=== PATIENT | male | born 1970 | race Hispanic/Latino ===

== ENCOUNTER 2020-10-29 05:30 | Inpatient (IN) | payer OTHER ==
[~2020-10-29] VITALS: Ht 180.3 cm; Wt 127.0 kg
[2020-10-29 05:57] LABS: BASOPHILS % (AUTO) 1.8 % (0.0-5.0); EOSINOPHILS % (AUTO) 4.9 % (0.0-8.0); HEMATOCRIT 34.6 % (42-54); LYMPHOCYTES % (AUTO) 24.6 % (21.0-51.0); MEAN CORPUSCULAR HEMOGLOBIN 33.9 pg (27.0-33.0); MEAN CORPUSCULAR HGB CONC 32.7 g/dL (32.0-36.0); MEAN CORPUSCULAR VOLUME 103.9 fL (79-99); MONOCYTES % (AUTO) 10.2 % (3.0-13.0); NEUTROPHILS % (AUTO) 58.1 % (40.0-77.0); PLATELET COUNT (AUTO) 144 K/uL (130-400); RED BLOOD CELL COUNT(AUTO) 3.33 MIL/uL (4.50-6.20); RED CELL DISTRIBUTION WIDTH 15.5 % (11.0-15.5); WHITE BLOOD COUNT (AUTO) 5.1 K/uL (4.8-10.8)
[2020-10-29 06:05] LABS: CREATININE 0.8 mg/dL (0.5-1.5); POTASSIUM 4.3 mmol/L (3.5-5.1)
[2020-10-29 06:09] LABS: ALBUMIN 2.3 g/dL (3.5-5.0); BILIRUBIN,TOTAL 1.8 mg/dL (0.2-1.0); TOTAL PROTEIN, SERUM 9.5 g/dL (6.0-8.3)
[2020-10-29] MEDS ORDERED: FUROSEMIDE 10 MG/ML 4ML VIAL ONE (06:16)
[2020-10-29 06:17] LABS: INR 1.5 (0.85-1.15); PROTHROMBIN TIME 15.8 SEC (9.6-11.6)
[2020-10-29 06:18] LABS: PARTIAL THROMBOPLASTIN TIME 31.3 SEC (26.3-35.5)
[2020-10-29 06:59] LABS: APPEARANCE,URINE Cloudy (CLEAR); BILIRUBIN,URINE Small (NEGATIVE); COLOR,URINE Dark Yellow (YELLOW); GLUCOSE, URINE (UA) Negative (NEGATIVE); KETONES,URINE Negative (NEGATIVE); LEUKOCYTE ESTERASE ,URINE Small (NEGATIVE); NITRATE,URINE Positive (NEGATIVE); OCCULT BLOOD,URINE Moderate (NEGATIVE); PROTEIN,URINE POS 2+ mg/dL (NEGATIVE)
[2020-10-29 07:02] LABS: AMPHET/METH SCREEN,URINE NEGATIVE (NEGATIVE); BARBITURATE SCREEN, URINE NEGATIVE (NEGATIVE); BENZODIAZEPINES SCREEN,URINE POSITIVE (NEGATIVE); CANNABINOID SCREEN,URINE NEGATIVE (NEGATIVE); COCAINE SCREEN,URINE POSITIVE (NEGATIVE); OPIATE SCREEN,URINE NEGATIVE (NEGATIVE); PHENCYCLIDINE SCREEN,URINE NEGATIVE (NEGATIVE)
[2020-10-29] MEDS ORDERED: PHARMACY COMMUNICATION MISC PRN (07:15)
[2020-10-29] MEDS ORDERED: LORAZEPAM 2 MG/ML 1 ML VIAL IVP PRN (07:15)
[2020-10-29 07:21] LABS: BACTERIA,URINE Few /HPF (None Seen); RBC,URINE 0-1 /HPF (0-1); SQUAMOUS EPITHELIAL CELL,UR Few /HPF (0-2)
[2020-10-29 07:41] LABS: HEMOGLOBIN A1C 5.5 % (4.0-6.0)
[2020-10-29] MEDS ORDERED: ALBUMIN (HUMAN) 25% 200 ML IV ONE (08:12)
[2020-10-29] MEDS ORDERED: FUROSEMIDE 10 MG/ML 4ML VIAL IVP SCH (09:00)
[2020-10-29 10:55] VITALS: BP 113/76
[2020-10-29] MEDS: THIAMINE HCL 100 MG/ML 2ML VIAL IM SCH ×2 (10:55→12:10)
[2020-10-29] MEDS ORDERED: PHYTONADIONE 10 MG in SODIUM CHLORIDE 0.9% 50 ML IV SCH (11:29)
[2020-10-29] MEDS: MULTIVITAMIN TABLET PO SCH ×2 (11:58→12:09)
[2020-10-29] MEDS: FOLIC ACID 1 MG TABLET PO SCH ×2 (11:58→12:09)
[2020-10-29] MEDS: FAMOTIDINE 20MG TAB 20 MG TAB PO SCH ×3 (11:58→20:48)
[2020-10-29] MEDS: LACTULOSE 20 GM/30 ML UDCUP PO PRN (12:11)
[2020-10-29] MEDS: CHLORDIAZEPOXIDE HCL 25 MG CAP PO PRN ×2 (12:15→19:22)
[2020-10-29 13:59] LABS: APPEARANCE BODY FLUID CLEAR (CLEAR); COLOR,BODY FLUID YELLOW (LT YELLOW); SPECIMENTYPE,BODY FLUID ASCITES; TOTAL VOLUME,BODY FLUID 7000 mL
[2020-10-29 14:00] LABS: BODY FLUID RBC 346 /cu. mm.; BODY FLUID WBC 134 /cu. mm.
[2020-10-29 14:01] LABS: BF BASOPHIL 1 %; BF LYMPHOCYTE 41 %; BF MESOTHELIAL 39 %; BF MONOCYTE 5 %
[2020-10-29] MEDS: LORAZEPAM 2 MG/ML 1 ML VIAL IVP PRN ×2 (15:09→21:02)
[2020-10-29 16:19] VITALS: BP 117/78
[2020-10-29 19:56] VITALS: BP 123/92
[2020-10-30 00:29] VITALS: BP 124/79
[2020-10-30 04:00] VITALS: BP 122/93
[2020-10-30] MEDS: CHLORDIAZEPOXIDE HCL 25 MG CAP PO PRN ×4 (04:08→21:28)
[2020-10-30 05:08] LABS: BASOPHILS % (AUTO) 1.8 % (0.0-5.0); EOSINOPHILS % (AUTO) 6.2 % (0.0-8.0); HEMATOCRIT 34.2 % (42-54); MEAN CORPUSCULAR HEMOGLOBIN 32.7 pg (27.0-33.0); MEAN CORPUSCULAR HGB CONC 31.9 g/dL (32.0-36.0); MEAN CORPUSCULAR VOLUME 102.7 fL (79-99); MONOCYTES % (AUTO) 10.6 % (3.0-13.0); NEUTROPHILS % (AUTO) 59.1 % (40.0-77.0); PLATELET COUNT (AUTO) 123 K/uL (130-400); RED BLOOD CELL COUNT(AUTO) 3.33 MIL/uL (4.50-6.20); RED CELL DISTRIBUTION WIDTH 15.3 % (11.0-15.5); WHITE BLOOD COUNT (AUTO) 3.4 K/uL (4.8-10.8)
[2020-10-30 05:57] LABS: ALBUMIN 2.5 g/dL (3.5-5.0); BILIRUBIN,TOTAL 2.7 mg/dL (0.2-1.0); CREATININE 0.9 mg/dL (0.5-1.5); POTASSIUM 3.2 mmol/L (3.5-5.1); TOTAL PROTEIN, SERUM 9.1 g/dL (6.0-8.3)
[2020-10-30 08:04] VITALS: BP 116/78
[2020-10-30] MEDS ORDERED: POTASSIUM CHLORIDE 10% ELIXIR 20 MEQ/15 ML UDCUP PO SCH (08:45)
[2020-10-30] MEDS ORDERED: FUROSEMIDE 10 MG/ML 4ML VIAL IVP SCH (09:00)
[2020-10-30] MEDS: THIAMINE HCL 100 MG/ML 2ML VIAL IM SCH (09:24)
[2020-10-30] MEDS: MULTIVITAMIN TABLET PO SCH (09:25)
[2020-10-30] MEDS: FOLIC ACID 1 MG TABLET PO SCH (09:25)
[2020-10-30] MEDS: FAMOTIDINE 20MG TAB 20 MG TAB PO SCH ×2 (09:25→21:29)
[2020-10-30] MEDS: SPIRONOLACTONE 25 MG TAB PO SCH (09:27)
[2020-10-30] MEDS: LORAZEPAM 2 MG/ML 1 ML VIAL IVP PRN ×2 (10:09→15:00)
[2020-10-30] MEDS ORDERED: CEFTRIAXONE SODIUM 1 GM IVP SCH (12:15)
[2020-10-30 12:24] VITALS: BP 128/99
[2020-10-30] MEDS ORDERED: MAGNESIUM 2GM PREMIX 50ML 50 ML IV ONE (12:45)
[2020-10-30] MEDS: THIAMINE HCL 100 MG/ML 2ML VIAL IVP SCH (14:44)
[2020-10-30] MEDS: LACTULOSE 20 GM/30 ML UDCUP PO PRN (14:45)
[2020-10-30 17:59] VITALS: BP 152/98
[2020-10-30] MEDS ORDERED: LEVOFLOXACIN 500 MG/D5W 100 ML 100 ML IV SCH (19:00)
[2020-10-30 19:19] LABS: PROTEIN,URINE RANDOM 121.2 mg/dL (0-11.9)
[2020-10-30 20:42] VITALS: BP 147/65
[2020-10-30] MEDS: FUROSEMIDE 10 MG/ML 4ML VIAL IVP SCH (21:28)
[2020-10-31 00:09] VITALS: BP 139/98
[2020-10-31 04:30] VITALS: BP 117/73
[2020-10-31 06:03] LABS: BASOPHILS % (AUTO) 1.2 % (0.0-5.0); EOSINOPHILS % (AUTO) 5.9 % (0.0-8.0); HEMATOCRIT 30.8 % (42-54); LYMPHOCYTES % (AUTO) 16.6 % (21.0-51.0); MEAN CORPUSCULAR HEMOGLOBIN 33.7 pg (27.0-33.0); MEAN CORPUSCULAR HGB CONC 32.1 g/dL (32.0-36.0); MEAN CORPUSCULAR VOLUME 104.8 fL (79-99); MONOCYTES % (AUTO) 14.5 % (3.0-13.0); NEUTROPHILS % (AUTO) 61.6 % (40.0-77.0); PLATELET COUNT (AUTO) 103 K/uL (130-400); RED BLOOD CELL COUNT(AUTO) 2.94 MIL/uL (4.50-6.20); WHITE BLOOD COUNT (AUTO) 4.3 K/uL (4.8-10.8)
[2020-10-31 06:41] LABS: MAGNESIUM 1.5 mg/dL (1.80-2.40); PHOSPHORUS 3.3 mg/dL (2.5-4.9); POTASSIUM 3.2 mmol/L (3.5-5.1); THYROID STIMULATING HORMONE 3.34 uIU/mL (0.36-3.74)
[2020-10-31] MEDS ORDERED: POTASSIUM CHLORIDE 20MEQ/100ML 100 ML IV PRN (08:15)
[2020-10-31] MEDS ORDERED: POTASSIUM CHLORIDE 20 MEQ ERTAB PO PRN (08:15)
[2020-10-31] MEDS: MAGNESIUM 2GM PREMIX 50ML 50 ML IV SCH (08:56)
[2020-10-31] MEDS: LORAZEPAM 2 MG/ML 1 ML VIAL IVP PRN ×3 (08:57→21:31)
[2020-10-31] MEDS: FUROSEMIDE 10 MG/ML 4ML VIAL IVP SCH ×2 (08:57→21:18)
[2020-10-31] MEDS: THIAMINE HCL 100 MG/ML 2ML VIAL IVP SCH (08:58)
[2020-10-31] MEDS: FAMOTIDINE 20MG TAB 20 MG TAB PO SCH ×2 (08:59→21:18)
[2020-10-31] MEDS: MULTIVITAMIN TABLET PO SCH (08:59)
[2020-10-31] MEDS: SPIRONOLACTONE 25 MG TAB PO SCH (08:59)
[2020-10-31] MEDS: TAMSULOSIN HCL 0.4 MG CAP.ER.24H PO SCH (08:59)
[2020-10-31] MEDS: FOLIC ACID 1 MG TABLET PO SCH (08:59)
[2020-10-31] MEDS: POTASSIUM CHLORIDE 10% ELIXIR 20 MEQ/15 ML UDCUP PO PRN ×2 (08:59→11:56)
[2020-10-31] MEDS: THIAMINE HCL 100 MG/ML 2ML VIAL IM SCH (08:59)
[2020-10-31] MEDS: CHLORDIAZEPOXIDE HCL 25 MG CAP PO PRN ×3 (09:19→21:29)
[2020-10-31 09:50] VITALS: BP 121/81
[2020-10-31] MEDS ORDERED: MEROPENEM 1 GM VIAL IVP SCH (10:00)
[2020-10-31 14:31] VITALS: BP 122/81
[2020-10-31 20:00] VITALS: BP 120/82
[2020-10-31] MEDS: SULFAMETHOX-TMP DS 800/160 TAB PO SCH (21:19)
[2020-11-01] VITALS: BP 122/84
[2020-11-01 04:00] VITALS: BP 116/80
[2020-11-01 05:34] LABS: BASOPHILS % (AUTO) 1.1 % (0.0-5.0); EOSINOPHILS % (AUTO) 5.9 % (0.0-8.0); HEMATOCRIT 32.8 % (42-54); LYMPHOCYTES % (AUTO) 14.5 % (21.0-51.0); MEAN CORPUSCULAR HEMOGLOBIN 33.7 pg (27.0-33.0); MEAN CORPUSCULAR HGB CONC 31.7 g/dL (32.0-36.0); MEAN CORPUSCULAR VOLUME 106.1 fL (79-99); MONOCYTES % (AUTO) 11.8 % (3.0-13.0); NEUTROPHILS % (AUTO) 66.3 % (40.0-77.0); PLATELET COUNT (AUTO) 113 K/uL (130-400); RED BLOOD CELL COUNT(AUTO) 3.09 MIL/uL (4.50-6.20); RED CELL DISTRIBUTION WIDTH 15.3 % (11.0-15.5); WHITE BLOOD COUNT (AUTO) 5.4 K/uL (4.8-10.8)
[2020-11-01 05:45] LABS: CREATININE 1.2 mg/dL (0.5-1.5); MAGNESIUM 1.6 mg/dL (1.80-2.40); POTASSIUM 3.6 mmol/L (3.5-5.1)
[2020-11-01 08:55] VITALS: BP 122/86
[2020-11-01] MEDS ORDERED: FUROSEMIDE 40 MG TABLET PO SCH (09:00)
[2020-11-01] MEDS: CHLORDIAZEPOXIDE HCL 25 MG CAP PO PRN ×2 (09:08→20:18)
[2020-11-01] MEDS: TAMSULOSIN HCL 0.4 MG CAP.ER.24H PO SCH (09:08)
[2020-11-01] MEDS: SPIRONOLACTONE 25 MG TAB PO SCH (09:08)
[2020-11-01] MEDS: MULTIVITAMIN TABLET PO SCH (09:09)
[2020-11-01] MEDS: FAMOTIDINE 20MG TAB 20 MG TAB PO SCH ×2 (09:09→20:17)
[2020-11-01] MEDS: SULFAMETHOX-TMP DS 800/160 TAB PO SCH ×2 (09:09→20:17)
[2020-11-01] MEDS: THIAMINE HCL 100 MG/ML 2ML VIAL IVP SCH (09:10)
[2020-11-01] MEDS: LORAZEPAM 2 MG/ML 1 ML VIAL IVP PRN ×3 (09:11→20:19)
[2020-11-01] MEDS: ENOXAPARIN SODIUM 30 MG/0.3 ML SQ SCH (09:12)
[2020-11-01] MEDS: MAGNESIUM 2GM PREMIX 50ML 50 ML IV SCH (09:44)
[2020-11-01] MEDS: POTASSIUM CHLORIDE 10% ELIXIR 20 MEQ/15 ML UDCUP PO PRN ×3 (09:45→20:20)
[2020-11-01 12:54] VITALS: BP 105/74
[2020-11-01 17:54] VITALS: BP 123/72
[2020-11-01] MEDS: FUROSEMIDE 20 MG TABLET PO SCH (18:02)
[2020-11-01 19:00] VITALS: BP 127/84
[2020-11-01] MEDS: MAGNESIUM OXIDE 400 MG TABLET PO SCH (20:17)
[2020-11-02] VITALS (7 sets, daily range): BP systolic 102–116; BP diastolic 63–78
[2020-11-02 05:44] LABS: ALBUMIN 2.2 g/dL (3.5-5.0); BILIRUBIN,DIRECT 0.6 mg/dL (0.0-0.3); CREATININE 1.1 mg/dL (0.5-1.5); POTASSIUM 4.1 mmol/L (3.5-5.1); TOTAL PROTEIN, SERUM 8.3 g/dL (6.0-8.3)
[2020-11-02] MEDS: SPIRONOLACTONE 25 MG TAB PO SCH (09:00)
[2020-11-02] MEDS: ENOXAPARIN SODIUM 30 MG/0.3 ML SQ SCH (09:00)
[2020-11-02] MEDS: MAGNESIUM OXIDE 400 MG TABLET PO SCH ×2 (09:18→21:10)
[2020-11-02] MEDS: SULFAMETHOX-TMP DS 800/160 TAB PO SCH ×2 (09:18→21:10)
[2020-11-02] MEDS: FAMOTIDINE 20MG TAB 20 MG TAB PO SCH ×2 (09:18→21:10)
[2020-11-02] MEDS: CHLORDIAZEPOXIDE HCL 25 MG CAP PO PRN ×2 (09:18→16:41)
[2020-11-02] MEDS: MULTIVITAMIN TABLET PO SCH (09:18)
[2020-11-02] MEDS: FUROSEMIDE 20 MG TABLET PO SCH ×2 (09:18→16:41)
[2020-11-02] MEDS: THIAMINE HCL 100 MG/ML 2ML VIAL IVP SCH (09:19)
[2020-11-02] MEDS: TAMSULOSIN HCL 0.4 MG CAP.ER.24H PO SCH (09:19)
[2020-11-02] MEDS: CHLORDIAZEPOXIDE HCL 25 MG CAP PO SCH ×2 (15:15→21:10)
[2020-11-02] MEDS ORDERED: FLUOXETINE HCL 10 MG CAPSULE PO SCH (15:15)
[2020-11-03 03:51] VITALS: BP 105/72
[2020-11-03 05:47] LABS: BASOPHILS % (AUTO) 0.8 % (0.0-5.0); HEMATOCRIT 33.9 % (42-54); LYMPHOCYTES % (AUTO) 17.8 % (21.0-51.0); MEAN CORPUSCULAR HEMOGLOBIN 33.3 pg (27.0-33.0); MEAN CORPUSCULAR HGB CONC 32.4 g/dL (32.0-36.0); MEAN CORPUSCULAR VOLUME 102.7 fL (79-99); MONOCYTES % (AUTO) 13.1 % (3.0-13.0); NEUTROPHILS % (AUTO) 62.8 % (40.0-77.0); PLATELET COUNT (AUTO) 107 K/uL (130-400); RED CELL DISTRIBUTION WIDTH 15.3 % (11.0-15.5); WHITE BLOOD COUNT (AUTO) 6.4 K/uL (4.8-10.8)
[2020-11-03 06:05] LABS: ALBUMIN 2.4 g/dL (3.5-5.0); CREATININE 1.2 mg/dL (0.5-1.5); MAGNESIUM 1.6 mg/dL (1.80-2.40); POTASSIUM 4.5 mmol/L (3.5-5.1); TOTAL PROTEIN, SERUM 8.8 g/dL (6.0-8.3)
[2020-11-03 08:00] VITALS: BP 108/70
[2020-11-03] MEDS: TAMSULOSIN HCL 0.4 MG CAP.ER.24H PO SCH (08:40)
[2020-11-03] MEDS: FLUOXETINE HCL 20 MG CAPSULE PO SCH ×2 (08:40→08:46)
[2020-11-03] MEDS: MAGNESIUM OXIDE 400 MG TABLET PO SCH (08:40)
[2020-11-03] MEDS: CHLORDIAZEPOXIDE HCL 25 MG CAP PO SCH ×2 (08:40→14:23)
[2020-11-03] MEDS: MAGNESIUM 2GM PREMIX 50ML 50 ML IV SCH (08:40)
[2020-11-03] MEDS: SPIRONOLACTONE 25 MG TAB PO SCH (08:41)
[2020-11-03] MEDS: FAMOTIDINE 20MG TAB 20 MG TAB PO SCH (08:41)
[2020-11-03] MEDS: FUROSEMIDE 20 MG TABLET PO SCH ×2 (08:41→16:56)
[2020-11-03] MEDS: THIAMINE HCL 100 MG/ML 2ML VIAL IVP SCH (08:41)
[2020-11-03] MEDS: SULFAMETHOX-TMP DS 800/160 TAB PO SCH (08:41)
[2020-11-03] MEDS: MULTIVITAMIN TABLET PO SCH (08:41)
[2020-11-03] MEDS ORDERED: FLUOXETINE HCL 20 MG CAPSULE PO SCH (09:00)
[2020-11-03] MEDS: ENOXAPARIN SODIUM 30 MG/0.3 ML SQ SCH (10:00)
[2020-11-03 11:41] VITALS: BP 111/77
[2020-11-03] MEDS ORDERED: LACT10SO9 PO (12:49)
[2020-11-03] MEDS ORDERED: MAGN400T7 PO (12:49)
[2020-11-03] MEDS ORDERED: FURO20TA6 PO (12:49)
[2020-11-03] MEDS ORDERED: TAMS-1 PO (12:49)
[2020-11-03] MEDS ORDERED: FLUO20CA30 PO (12:49)
[2020-11-03] MEDS ORDERED: SPIR100T5 PO (12:49)
[2020-11-03 13:47] LABS: ABG BASE EXCESS 6.3 mmol/L (-2.0-3.0); ABG HCO3 29.9 mmol/L (21.0-28.0); ABG PCO2 39 mmHg (35-48)
[2020-11-03 16:00] VITALS: BP 109/77
== END 2020-11-03 17:35 | disposition home or self-care (01) | DRG 432 ==
LOC: EDH 05:30 → EDHIP 05:31 → OBSVTOIN 05:31 → UNDOADMOB 07:06 → EDHIP 07:06 → 3DH 10:47
PROVIDERS: ADMIT Internal Medicine; ATTEND Internal Medicine
PROC: 0W9G3ZZ Drainage of Peritoneal Cavity, Percutaneous Approach (ICD-10-PCS; principal; 2020-10-29)
DX: K70.31 Alcoholic cirrhosis of liver with ascites (principal); E43 Unspecified severe protein-calorie malnutrition; E87.1 Hypo-osmolality and hyponatremia; D68.4 Acquired coagulation factor deficiency; Z16.24 Resistance to multiple antibiotics; N39.0 Urinary tract infection, site not specified; I42.0 Dilated cardiomyopathy; F10.239 Alcohol dependence with withdrawal, unspecified; F14.20 Cocaine dependence, uncomplicated; E87.3 Alkalosis; K72.90 Hepatic failure, unspecified without coma; E87.6 Hypokalemia; D64.9 Anemia, unspecified; I25.10 Atherosclerotic heart disease of native coronary artery without angina pectoris; I27.20 Pulmonary hypertension, unspecified; N41.9 Inflammatory disease of prostate, unspecified; N48.89 Other specified disorders of penis; B96.20 Unspecified Escherichia coli [E. coli] as the cause of diseases classified elsewhere; N28.9 Disorder of kidney and ureter, unspecified; F41.1 Generalized anxiety disorder; E66.9 Obesity, unspecified; E78.5 Hyperlipidemia, unspecified; D69.59 Other secondary thrombocytopenia; E83.42 Hypomagnesemia; I11.0 Hypertensive heart disease with heart failure; I50.9 Heart failure, unspecified; M79.89 Other specified soft tissue disorders; I51.3 Intracardiac thrombosis, not elsewhere classified; T50.2X6A Underdosing of carbonic-anhydrase inhibitors, benzothiadiazides and other diuretics, initial encounter; R53.81 Other malaise; F17.210 Nicotine dependence, cigarettes, uncomplicated; I25.2 Old myocardial infarction; Z68.39 Body mass index [BMI] 39.0-39.9, adult; Z88.1 Allergy status to other antibiotic agents; Z91.19 Patient's noncompliance with other medical treatment and regimen; Z59.9 Problem related to housing and economic circumstances, unspecified; Z79.899 Other long term (current) drug therapy; Y92.89 Other specified places as the place of occurrence of the external cause
CPT/HCPCS: 36415; 36600; 49083; 71045; 76705; 80048; 80053; 80076; 80305; 81001; 82140; 82570; 82803; 82948; 83036; 83605; 83690; 83735; 84100; 84156; 84157; 84443; 84484; 84550; 85025; 85610; 85730; 86804; 87040; 87071; 87077; 87088; 87186; 87205; 87522; 89051; 93005; 93306; 93356; 96365; G0378; J0696; J1650; J1940; J1956; J2060; J2185; J3411; J3430; J3475; P9046